=== PATIENT | female | born 1990 | race Caucasian/White ===

== ENCOUNTER 2017-05-28 19:45 | Emergency (ER) | payer MEDICAID, OTHER ==
[~2017-05-28] VITALS: Ht 149.9 cm; Wt 67.0 kg
[~2017-05-28 19:45] MED LIST: CYCL-319 PO
[2017-05-28 19:56] VITALS: Ht 149.9 cm; Wt 67.0 kg
[2017-05-28] MEDS ORDERED: ACETAMINOPHEN 325 MG TAB PO ONE (20:30)
[2017-05-28] MEDS ORDERED: ACET500C5 PO (21:31)
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
== END 2017-05-28 21:37 | disposition home or self-care (01) ==
LOC: FTE 19:45
DX: S39.92XA Unspecified injury of lower back, initial encounter (principal); V49.50XA Passenger injured in collision with unspecified motor vehicles in traffic accident, initial encounter
CPT/HCPCS: Z7502; Z7610; 99283